=== PATIENT | female | born 1950 | race Caucasian/White ===

== ENCOUNTER 2023-06-28 06:39 | Day surgery (SDC) | payer MEDICARE, SELFPAY ==
[2023-06-28 11:22] VITALS: BMI 19.7
[2023-06-28 11:23] VITALS: BMI 19.7
[2023-06-28 11:33] VITALS: BP 133/89
[2023-06-28] MEDS: NORMOSOL-R 1000 IV (11:40)
[2023-06-28] MEDS: HEPARIN 5000 UNITS SC (11:52)
== END 2023-06-28 12:54 | disposition home or self-care (01) ==
LOC: SDS 06:39
PROVIDERS: ATTENDING PHYSICIAN Obstetrics & Gynecology
DX: D39.12 Neoplasm of uncertain behavior of left ovary (principal); Z53.8 Procedure and treatment not carried out for other reasons; R19.03 Right lower quadrant abdominal swelling, mass and lump; G47.33 Obstructive sleep apnea (adult) (pediatric); Z72.0 Tobacco use
CPT/HCPCS: 58571; 86850; 86900; 86901

== ENCOUNTER 2023-08-20 20:50 | Emergency (ER) | payer MEDICARE, SELFPAY ==
[2023-08-20 20:57] VITALS: BP 130/61
[2023-08-20 21:35] LABS: % Basophils 0.3 % (0-2); % Eosinophils 1.7 % (0-6); % Immature Granulocytes 0.5 % (0-0.5); % Monocytes 10.1 % (1.7-9.3); % Neutrophils 59.4 % (42.2-75.2); Absolute Eosinophils 0.1 10^3/uL (0-0.7); Absolute Lymphocytes 1.7 10^3/uL (1.2-3.4); Absolute Monocytes 0.6 10^3/uL (0.1-0.6); Absolute Neutrophils 3.6 10^3/uL (1.4-6.5); Hematocrit 34.7 % (37.0-47.0); Hemoglobin 11.4 g/dL (12.0-16.0); Mean Corp Hgb Conc. 32.9 g/dL (33.0-37.0); Mean Corpuscular Hgb 31.1 pg (27.0-31.0); Mean Corpuscular Volume 94.6 fL (81.0-99.0); Mean Platelet Volume 10.1 fL (7.4-10.4); Nucleated Red Blood Cells % 0 %; Platelet Count 224 10^3/uL (130-400); Red Blood Cell Count 3.67 10^6/uL (4.20-5.40); Red Cell Dist. Width 16.4 % (11.5-14.5)
[2023-08-20 21:55] LABS: ALT (SGPT) 22 U/L (0-35); AST (SGOT) 39 U/L (14-36); Alkaline Phosphatase 41 U/L (38-126); Blood Urea Nitrogen 20 mg/dl (7-17); Calcium 9.4 mg/dl (8.4-10.2); Carbon Dioxide 28 mmol/L (22-30); Chloride 101 mmol/L (98-107); Glucose 112 mg/dl (70-99); Potassium 4.4 mmol/L (3.5-5.1); Sodium 134 mmol/L (135-145); Total Bilirubin 2.9 mg/dl (0.2-1.3); Total Protein 6.5 g/dl (6.3-8.2); eGFR > 60.00
[2023-08-20 22:00] VITALS: BP 148/78
--- NOTE | 2023-08-20 22:04 | ED.GENMED ---
Addendum entered and electronically signed by Rosales Meehan MD 08/21/23 07:44:
I received a call from the radiologist this morning�CT over read concerning for possible small area of active extravasation in the pelvis. Patient apparently has a history of recent hysterectomy and postoperative bleeding requiring multiple
transfusions at [place]. Radiologist recommending repeat CT pelvis with and without IV contrast to better evaluate. I called the patient's son and spoke with him directly on the phone to explain the situation. He will bring patient back to the
emergency room immediately if for repeat imaging. Daytime ER attending aware.
Original Note:
History of Present Illness
General
Chief Complaint: Weakness
Source: patient
Exam Limitations: none
Time Seen by Provider: 08/20/23 21:37
Travel History
Have you had any contact with someone who has COVID-19?: No
Do you have any symptoms of coronavirus? Fever > 100 degrees, chills, cough, shortness of breath, sore throat, loss of taste or smell, muscle aches, or headache?: No
History of Present Illness
History of Present Illness:
This is a 73 year old female that comes in with c/o weakness. States that a week ago on she had a hysterectomy. States that that Tuesday after she had an internal bleed and they gave her 2 units of blood and the next day they gave her
another unit. States that they had to go in through her groin and cauterize the bleeder. States that she has been getting weaker and weaker. States that Tuesday she was good and Tuesday she was OK but has been getting weaker since then. States that
she has this right lower abd pain that comes and goes. States that she had diarrhea and some dizziness. Denies any fever, chills, chest pain, SOB, nausea, vomiting, headache, urinary burning.
Past History
Past History
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
Hyperthyroid) and Other (History of back pain, dizziness, neck pain, sleep apnea, arthritis, lung CA and anxiety.)
ED Past Surgical History: Gynecological (Tubal, Hysterectomy), Orthopedic (Right Rotator cuff) and Other ( status post right thoracotomy.)
Social History
Tobacco: Smoker
Alcohol: None
Personal:
Living: with family
Employment: Employed
Family History
Family History: Negative Diabetes, Hypertension, Early CAD, Asthma or Cancer
Review of Systems
Review of Systems
All Other Systems: ROS reviewed and negative except as documented in HPI and ROS
Constitutional: Reports no symptoms; Denies fever or chills
EENT: Reports no symptoms
Respiratory: Reports no symptoms; Denies cough or trouble breathing
Cardiac: Reports no symptoms; Denies chest pain
ABD/GI: Reports abdominal pain (Right lower abd) and diarrhea; Denies nausea or vomiting
: Reports no symptoms; Denies dysuria, frequency or urgency
Musculoskeletal: Reports no symptoms
Skin: Reports no symptoms
Neurological: Reports dizzy; Denies headache
Psychiatric: Reports no symptoms
Phy Exam
General Physical Exam
General Presentation: well appearing and no apparent distress
General age: appears stated age
General Skin: warm and dry
General Habitus: elderly
General Mental: alert
General Hydration: appears well hydrated
ENT Exam
ENT Exam: TM's normal, pharynx normal and neck supple
Eye Exam
Eye Exam: EOMI
Cardiovascular Exam
Cardiovascular Exam: regular rate/rhythm, no edema and normal peripheral pulses
Pulmonary Exam
Pulmonary Exam: lungs clear, no respiratory distress, no rales, chest non tender, no crackles, no rhonchi, no wheezing and no cough
Gastrointestinal Exam
Gastrointestinal Exam: normal bowel sounds, soft, no organomegaly, no pulsatile mass, non distended and tender (Right lower abd tenderness, Crepitus)
Musculoskeletal Exam
Musculoskeletal Exam: full ROM and no edema
Skin Exam
Skin Exam: normal color, warm/dry, no rash, no petechia and other (Contusion noted on both flanks and into the low back on the right. Lower abd bruising noted. Multiple areas with steri strips from surgery. Negative for any redness or drainage. )
Psychiatric Exam
Psychiatric Exam: normal mood/affect
Course
Orders/Labs/Results
Orders:
Orders
08/20/23 21:03
Electrocardiogram (*1) Urgent
Reason for Study: Fatigue / Weakness
EKG- Treatment ONCE
08/20/23 21:18
Complete Blood Count/With Diff Urgent
Comprehensive Metabolic Panel Urgent
08/20/23 22:03
0.9% Sodium Chloride 1000 ml [Nss] 1,000 ml IV BOLUS
Iohexol [Omnipaque] See Protocol PO NOW STA
08/20/23 23:35
Urinalysis Reflex To Culture Urgent
Date Specimen was Collected: 08/20/23
Time Specimen was Collected: 23:34
Urine Microscopic Reflex Cult Urgent
08/21/23 00:00
CT Abd/pel W Iv And Oral Contr Urgent
Comment: Recent Hysterectomy
Reason For Exam: Right lower abd pain
Abnormal Lab Results
08/20/23 08/20/23
21:18 23:35
RBC 3.67 L 10^6/uL
(4.20-5.40)
Hgb 11.4 L g/dL
(12.0-16.0)
Hct 34.7 L %
(37.0-47.0)
MCH 31.1 H pg
(27.0-31.0)
MCHC 32.9 L g/dL
(33.0-37.0)
RDW 16.4 H %
(11.5-14.5)
Monocytes % 10.1 H %
(1.7-9.3)
Sodium 134 L mmol/L
(135-145)
BUN 20 H mg/dl
(7-17)
Glucose 112 H mg/dl
(70-99)
Total Bilirubin 2.9 H mg/dl
(0.2-1.3)
AST 39 H U/L
(14-36)
Ur Occult Blood Reflex Trace A
(Negative)
Urine RBC 3-6 A /HPF
(0-2)
Urine Bacteria (Reflex) Few A
(Negative)
08/20/23 21:18
08/20/23 21:18
H/H slightly low. Dehydration. Glucose nonfasting. Total nakul elevation. AST slightly elevated. Urine negative for infection.
Vital Signs
Initial and Last Documented VS:
Initial Vital Signs
Temp Pulse Resp BP Pulse Ox
98.2 F 79 16 130/61 99
08/20/23 20:57 08/20/23 20:57 08/20/23 20:57 08/20/23 20:57 08/20/23 20:57
Last Documented Vital Signs
Temp Pulse Resp BP Pulse Ox
98.2 F 73 19 143/74 97
08/20/23 20:57 08/21/23 00:00 08/20/23 23:45 08/21/23 00:00 08/21/23 00:00
MDM/Problems Addressed
Differential Diagnosis Includes:
Bowel obstruction, UTI, Postoperative problem
MDM/Problems Addressed:
This is a 73 year old female that comes in with c/o feeling weak. States that she has a hysterectomy at [place] a week ago. Then on Tuesday a week ago she had internal bleeding and got 2 units of blood and the next day one unit. States
that they had gone up through her groin and Cauterized the bleed. States that for the past few days she is just feeling weak. States that she also had diarrhea.
Will check labs CT abd. Give IV fluids
Back into see patient. Explained that her blood work shows a little dehydration. Her CT shows that this could be an enteritis or ileus. Explained to patient that after surgery the bowel slows down and she will need to be up moving around. If this is
an Enteritis as noted by the diarrhea this will go away on its own. Encouraged patient to stay away form milk and milk products until the diarrhea stops. Increase her water intake to 8-8oz glasses daily. Chicken, rice and potatoes are easily
digested. Follow up with the PCP of the surgeon. Return with any concerns.
Chronic conditions affecting care: Cancer
Acute Exacerbation and/or Progression of Chronic Illness:
NA
*Radiology
Radiology exam reviewed: radiology read reviewed (CT abd/pelvis night hawk-Mildly prominent loops of small bowel with air-filled levels, may represent ileus and/or enteritis. No bowel obstruction. Postsurgical changes status post hysterectomy
without evidence of postoperative complication. Extensive subcutaneous emphysema along the anterior ), all reviewed NAD by ED Provider (CT cont- abd feliz, likely postsurgical. Incidentals: Normal gallbadder and appendix. Small free fluid in the
deep pelvix, some of which is intermediate density. No obstructive uropathy. Hepatic hypodensities, too small to characterize. No abd aortic aneurysm. No acute osseous abnormality. ) and other (CT cont- NO acute abnormality within the visualized
lungs. )
*Pulse Oximetry
Patient hypoxic: no
*EKG
Interpreted by ED Provider?: Yes
Heart Rate: 78
Rate: normal
Rhythm: sinus
[place]: normal axis
Interval: normal interval
QRS Pattern: normal QRS
Ischemia: no ischemia
*Por[employer]ain [employer] Interpretation
Rate: normal
Heart Rate: 73
Rhythm: sinus
*Critical Care Note
Total Time (30-74mins, 75-104mins- exclusive of procedures): Not Applicable
ED Attending Note
-
Portions of this chart may have been created with voice recognition software.� Occasional wrong word or��sound alike� substitutions may have occurred due to the inherent limitations of voice recognition software.
Discharge Plan
Departure
Patient Disposition: Home (Routine Discharge)
Date of Disposition: 08/21/23
Time of Disposition: 01:33
Patient with high blood pressure during this ER visit?: Yes
Condition: Good
Covid-19: Not Applicable
Discharge Problem:
Enteritis
Instructions: BLOOD PRESSURE
Prescriptions:
No Action
albuterol sulfate [ProAir HFA] 90 mcg/actuation Hfa Aerosol Inhaler
2 puff INHALATION PRN PRN (Reason: COPD)
escitalopram oxalate [Lexapro] 20 mg Tablet
20 mg PO QPM
atorvastatin 20 mg Tablet
20 mg PO QPM
methimazole 5 mg Tablet
2.5 mg PO MOTUWETHFR
cholecalciferol (vitamin D3) [Vitamin D3] 25 mcg (1,000 unit) Tablet
25 mcg PO DAILY
coQ10 (ubiquinol) 200 mg Capsule
200 mg PO Q48H
Myrbetriq 25 mg Tablet Extended Release 24 Hr
25 mg PO DAILY
Eliquis 5 mg Tablet
5 mg PO BID
metoprolol tartrate 37.5 mg Tablet
37.5 mg PO DAILY
lorazepam [Ativan] 0.5 mg Tablet
0.25 mg PO DAILY PRN (Reason: anxiety)
Referrals:
UNKNOWN - PT NOT,INTERVIEWE [Family Provider] -
Activity Restrictions/Additional Instructions:
As discussed, your blood work shows that you are slightly dehydrated. Please increase your water intake to 8-8oz glasses daily. Your urine is negative for infection. Your CT shows that this maybe an Enteritis or early ileus. This is most likely an
enteritis due to the diarrhea. Please stay away from milk and milk products until the diarrhea stops. Simple food to eat is Chicken, Rice and potatoes which are easily digested. Follow up with your surgeon and your family doctor. IF YOU HAVE
INCREASED OR CHANGING ABD PAIN, FEVER, OR YOU HAVE ANY OTHER CONCERNS PLEASE RETURN TO THE EMERGENCY ROOM.
Interventions
Interventions:
*Risk Screen - Suicide Last Done: 08/20/23 21:30
*General Assessment Last Done: 08/20/23 20:57
*Neglect/Abuse Screening Last Done: 08/20/23 21:30
*ED COVID-19 Vaccine History Last Done: 08/20/23 20:57
ED- Cardiac Assessment Last Done: 08/20/23 22:16
ED- Neurological Assessment Last Done: 08/20/23 22:16
ED- Pulmonary Assessment Last Done: 08/20/23 22:16
Discharge Date and Time
Print Language: AZERI
[2023-08-20] MEDS: OMNIPAQUE 50 ML PO (22:10)
[2023-08-20] MEDS: NSS 1000 IV (22:18)
[2023-08-20 23:00] VITALS: BP 146/69
[2023-08-20 23:49] LABS: Urine Albumin Negative (Neg - Trace); Urine Bilirubin Negative (Negative); Urine Character Clear (Clear); Urine Color Yellow; Urine Glucose Negative (Negative); Urine Ketone Negative (Negative); Urine Leukocyte Negative (Negative); Urine Nitrite Negative (Negative); Urine Occult Blood Trace (Negative); Urine Urobilinogen Negative (Neg - 1+)
[2023-08-21] VITALS: BP 143/74
[2023-08-21 00:28] LABS: Urine Bacteria Few (Negative)
[2023-08-21 01:42] VITALS: BP 149/67
== END 2023-08-21 02:01 | disposition home or self-care (01) ==
LOC: EMR 20:50
PROVIDERS: Clinical Nurse Specialist Family Health; Emergency Medicine; EMERGENCY PHYSICIAN Emergency Medicine
DX: K52.9 Noninfective gastroenteritis and colitis, unspecified (principal); E86.0 Dehydration; I48.91 Unspecified atrial fibrillation; J43.9 Emphysema, unspecified; I10 Essential (primary) hypertension; E78.00 Pure hypercholesterolemia, unspecified; F41.9 Anxiety disorder, unspecified; G47.30 Sleep apnea, unspecified; E05.90 Thyrotoxicosis, unspecified without thyrotoxic crisis or storm; F17.200 Nicotine dependence, unspecified, uncomplicated; Z79.01 Long term (current) use of anticoagulants; Z82.49 Family history of ischemic heart disease and other diseases of the circulatory system; Z85.51 Personal history of malignant neoplasm of bladder; Z90.710 Acquired absence of both cervix and uterus; Z98.890 Other specified postprocedural states
CPT/HCPCS: 99284; 96360; 74177; 80053; 81003; 81015; 85025; 93005; Q9967

== ENCOUNTER 2023-08-21 11:40 | Emergency (ER) | payer MEDICARE, SELFPAY ==
[2023-08-21 11:48] VITALS: BP 116/90
[2023-08-21 13:15] VITALS: BP 145/70
--- NOTE | 2023-08-21 13:29 | ED.GENMED ---
History of Present Illness
General
Chief Complaint: Abnormal Lab Value
Source: patient
Exam Limitations: none
Time Seen by Provider: 08/21/23 12:53
Travel History
Have you had any contact with someone who has COVID-19?: No
Do you have any symptoms of coronavirus? Fever > 100 degrees, chills, cough, shortness of breath, sore throat, loss of taste or smell, muscle aches, or headache?: No
History of Present Illness
History of Present Illness:
73-year-old female presents for reevaluation. She was here overnight for weakness. She was thought to have enteritis. She had a hysterectomy approximately 11 days ago through [facility]. She was anemic afterwards and required a blood
transfusion. She also had a uterine artery bleed postoperatively that was embolized by interventional radiology prior to discharge. Upon discharge which was, 6 days ago, she felt well however since discharge she has noticed progressive weakness.
She was here last evening had a CT scan of her abdomen with IV contrast which was initially thought to be enteritis however reread by radiologist suggested a possibility of extravasation. They recommend she return here for CT scan with and without
IV contrast. No new complaints on the patient's behalf.
Past History
Past History
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
Hyperthyroid) and Other (History of back pain, dizziness, neck pain, sleep apnea, arthritis, lung CA and anxiety.)
ED Past Surgical History: Gynecological (Tubal, Hysterectomy), Orthopedic (Right Rotator cuff) and Other ( status post right thoracotomy.)
Social History
Tobacco: Smoker
Alcohol: None
Personal:
Living: with family
Employment: Employed
Family History
Family History: Negative Diabetes, Hypertension, Early CAD, Asthma or Cancer
Phy Exam
Physical Exam
Physical Exam:
General: Well-appearing female no acute respiratory distress
HEENT: Normocephalic atraumatic
Heart: Regular rate and rhythm no murmurs
Lungs: Clear to auscultation bilaterally no wheezing
Abdomen soft incisional tenderness is noted but nondistended ecchymosis is noted about the abdominal wall. This is not new.
Extremities: No cyanosis
Course
Orders/Labs/Results
Orders:
Orders
08/21/23 13:12
CT Pelvis W/wo Iv Contrast Urgent
Comment: Please do delayed imaging
Reason For Exam: abdominal pain, recent abnormal cT,
08/21/23 13:32
Complete Blood Count/With Diff Urgent
Comprehensive Metabolic Panel Urgent
Abnormal Lab Results
08/21/23
13:32
RBC 3.38 L 10^6/uL
(4.20-5.40)
Hgb 10.6 L g/dL
(12.0-16.0)
Hct 30.9 L %
(37.0-47.0)
MCH 31.4 H pg
(27.0-31.0)
RDW 16.7 H %
(11.5-14.5)
Monocytes % 10.5 H %
(1.7-9.3)
Sodium 132 L mmol/L
(135-145)
Total Bilirubin 2.7 H mg/dl
(0.2-1.3)
AST 43 H U/L
(14-36)
Total Protein 6.2 L g/dl
(6.3-8.2)
08/21/23 13:32
08/21/23 13:32
Vital Signs
Initial and Last Documented VS:
Initial Vital Signs
Temp Pulse Resp BP Pulse Ox
97.5 F 79 18 116/90 99
08/21/23 11:48 08/21/23 11:48 08/21/23 11:48 08/21/23 11:48 08/21/23 11:48
Last Documented Vital Signs
Temp Pulse Resp BP Pulse Ox
97.5 F 77 24 145/70 97
08/21/23 11:48 08/21/23 13:15 08/21/23 13:15 08/21/23 13:15 08/21/23 13:15
MDM/Problems Addressed
Differential Diagnosis Includes:
Ongoing weakness. Patient with questionable extravasation on CT scan last evening. Here for repeat CT with and without with delayed imaging. This was ordered. Repeat labs pending
*Critical Care Note
Total Time (30-74mins, 75-104mins- exclusive of procedures): Not Applicable
Update Note
Update Note:
CT today reassuring. What was thought to be extravasation on yesterday CT scan demonstrates what appears to be a suture today. Hematoma is stable in size. Vital signs are stable. Slight drop in hemoglobin from yesterday. She did receive some
fluids yesterday. This could be dilutional. She denies any dark stools. She feels comfortable going home which I think is reasonable. She will follow-up with her surgeon as planned this week
ED Attending Note
-
Portions of this chart may have been created with voice recognition software.� Occasional wrong word or��sound alike� substitutions may have occurred due to the inherent limitations of voice recognition software.
Discharge Plan
Departure
Patient Disposition: Home (Routine Discharge)
Date of Disposition: 08/21/23
Time of Disposition: 16:06
Patient with high blood pressure during this ER visit?: No
Discharge Problem:
Fatigue
Prescriptions:
No Action
albuterol sulfate [ProAir HFA] 90 mcg/actuation Hfa Aerosol Inhaler
2 puff INHALATION PRN PRN (Reason: COPD)
escitalopram oxalate [Lexapro] 20 mg Tablet
20 mg PO QPM
atorvastatin 20 mg Tablet
20 mg PO QPM
methimazole 5 mg Tablet
2.5 mg PO MOTUWETHFR
cholecalciferol (vitamin D3) [Vitamin D3] 25 mcg (1,000 unit) Tablet
25 mcg PO DAILY
coQ10 (ubiquinol) 200 mg Capsule
200 mg PO Q48H
Myrbetriq 25 mg Tablet Extended Release 24 Hr
25 mg PO DAILY
Eliquis 5 mg Tablet
5 mg PO BID
metoprolol tartrate 37.5 mg Tablet
37.5 mg PO DAILY
lorazepam [Ativan] 0.5 mg Tablet
0.25 mg PO DAILY PRN (Reason: anxiety)
Referrals:
Kathy George CRNP [Family Provider] -
Activity Restrictions/Additional Instructions:
Stay hydrated. Please return here for worsening symptoms otherwise follow-up with surgeon as planned
Interventions
Interventions:
*Risk Screen - Suicide Last Done: 08/21/23 11:48
*General Assessment Last Done: 08/21/23 11:48
*Neglect/Abuse Screening Last Done: 08/21/23 11:48
*ED COVID-19 Vaccine History Last Done: 08/21/23 13:18
Discharge Date and Time
Print Language: SLOVENIAN
[2023-08-21 13:57] LABS: % Basophils 0.4 % (0-2); % Eosinophils 2.5 % (0-6); % Immature Granulocytes 0.5 % (0-0.5); % Monocytes 10.5 % (1.7-9.3); % Neutrophils 63.1 % (42.2-75.2); Absolute Eosinophils 0.1 10^3/uL (0-0.7); Absolute Lymphocytes 1.3 10^3/uL (1.2-3.4); Absolute Monocytes 0.6 10^3/uL (0.1-0.6); Absolute Neutrophils 3.6 10^3/uL (1.4-6.5); Hematocrit 30.9 % (37.0-47.0); Hemoglobin 10.6 g/dL (12.0-16.0); Mean Corp Hgb Conc. 34.3 g/dL (33.0-37.0); Mean Corpuscular Hgb 31.4 pg (27.0-31.0); Mean Corpuscular Volume 91.4 fL (81.0-99.0); Mean Platelet Volume 9.7 fL (7.4-10.4); Nucleated Red Blood Cells % 0 %; Platelet Count 235 10^3/uL (130-400); Red Blood Cell Count 3.38 10^6/uL (4.20-5.40); Red Cell Dist. Width 16.7 % (11.5-14.5); White Blood Cell Count 5.7 10^3/uL (4.8-10.8)
[2023-08-21 14:00] VITALS: BP 134/70
[2023-08-21 14:25] LABS: ALT (SGPT) 21 U/L (0-35); AST (SGOT) 43 U/L (14-36); Albumin 3.7 g/dl (3.5-5.0); Alkaline Phosphatase 46 U/L (38-126); Blood Urea Nitrogen 12 mg/dl (7-17); Carbon Dioxide 26 mmol/L (22-30); Chloride 105 mmol/L (98-107); Glucose 90 mg/dl (70-99); Potassium 4.1 mmol/L (3.5-5.1); Sodium 132 mmol/L (135-145); Total Bilirubin 2.7 mg/dl (0.2-1.3); Total Protein 6.2 g/dl (6.3-8.2); eGFR > 60.00
[2023-08-21 15:13] VITALS: BP 132/108
[2023-08-21 16:00] VITALS: BP 141/69
== END 2023-08-21 16:14 | disposition home or self-care (01) ==
LOC: EMR 11:40
PROVIDERS: Physician Assistant; EMERGENCY PHYSICIAN Emergency Medicine; FAMILY PHYSICIAN Registered Nurse Ambulatory Care
DX: R53.83 Other fatigue (principal); R53.1 Weakness; I48.91 Unspecified atrial fibrillation; I10 Essential (primary) hypertension; E78.00 Pure hypercholesterolemia, unspecified; F41.9 Anxiety disorder, unspecified; G47.30 Sleep apnea, unspecified; M19.90 Unspecified osteoarthritis, unspecified site; J44.9 Chronic obstructive pulmonary disease, unspecified; F17.200 Nicotine dependence, unspecified, uncomplicated; Z98.890 Other specified postprocedural states; Z85.118 Personal history of other malignant neoplasm of bronchus and lung; Z85.51 Personal history of malignant neoplasm of bladder; Z79.01 Long term (current) use of anticoagulants; Z91.030 Bee allergy status; Z88.2 Allergy status to sulfonamides; Z91.048 Other nonmedicinal substance allergy status
CPT/HCPCS: 99285; 72194; 80053; 85025; Q9967

== ENCOUNTER → 2023-08-29 17:12 | Outpatient (REF) | payer MEDICARE, SELFPAY | LOC: RAD 17:12 | PROVIDERS: ATTENDING PHYSICIAN Internal Medicine; FAMILY PHYSICIAN Family Medicine | DX: F17.200 Nicotine dependence, unspecified, uncomplicated (principal); M79.604 Pain in right leg; Z90.710 Acquired absence of both cervix and uterus | CPT/HCPCS: 93971 ==

== ENCOUNTER → 2024-10-02 12:59 | Outpatient (REF) | payer MEDICARE, SELFPAY ==
[2024-10-02 14:00] LABS: Hemoglobin 15.5 g/dL (12.0-16.0); Mean Corp Hgb Conc. 33.7 g/dL (33.0-37.0); Mean Corpuscular Hgb 31.3 pg (27.0-31.0); Mean Corpuscular Volume 92.9 fL (81.0-99.0); Mean Platelet Volume 11.2 fL (7.4-10.4); Platelet Count 149 10^3/uL (130-400); Red Blood Cell Count 4.95 10^6/uL (4.20-5.40); Red Cell Dist. Width 13.5 % (11.5-14.5); White Blood Cell Count 4.6 10^3/uL (4.8-10.8)
[2024-10-02 14:12] LABS: Urine Albumin Negative (Neg - Trace); Urine Bilirubin Negative (Negative); Urine Character Clear (Clear); Urine Color Yellow; Urine Glucose Negative (Negative); Urine Ketone Negative (Negative); Urine Leukocyte Negative (Negative); Urine Nitrite Negative (Negative); Urine Occult Blood 1+ (Negative); Urine Specific Gravity 1.005 (<1.030); Urine Urobilinogen Negative (Neg - 1+)
[2024-10-02 14:27] LABS: Blood Urea Nitrogen 12 mg/dl (7-17); Calcium 9.6 mg/dl (8.4-10.2); Carbon Dioxide 29 mmol/L (22-30); Chloride 108 mmol/L (98-107); Glucose 94 mg/dl (70-99); Potassium 4.2 mmol/L (3.5-5.1); Sodium 140 mmol/L (135-145); eGFR > 60.00
[2024-10-02 14:30] LABS: Urine Red Blood Cell 0-2 /HPF (0-2); Urine Squamous Cell 21-25 /LPF (Few); Urine White Cell 0-2 /HPF (0-5)
== END ==
LOC: RCS 12:59
PROVIDERS: ATTENDING PHYSICIAN Nurse Practitioner; FAMILY PHYSICIAN Family Medicine; OTHER PHYSICIAN Urology
DX: N39.41 Urge incontinence (principal); R35.0 Frequency of micturition; Z01.818 Encounter for other preprocedural examination
CPT/HCPCS: 36415; 80048; 81003; 81015; 85027; 87086; 93005

== ENCOUNTER → 2025-02-14 10:46 | Outpatient (REF) | payer MEDICARE, SELFPAY | LOC: HWRAD 10:46 | PROVIDERS: ATTENDING PHYSICIAN Internal Medicine Critical Care Medicine; FAMILY PHYSICIAN Family Medicine | DX: F17.210 Nicotine dependence, cigarettes, uncomplicated (principal) | CPT/HCPCS: 71271 ==

== ENCOUNTER → 2025-02-25 14:59 | Outpatient (REF) | payer MEDICARE, SELFPAY | LOC: RCS 14:59 | PROVIDERS: ATTENDING PHYSICIAN Internal Medicine Cardiovascular Disease; FAMILY PHYSICIAN Family Medicine | DX: I48.0 Paroxysmal atrial fibrillation (principal) | CPT/HCPCS: 93306 ==

== ENCOUNTER → 2025-04-09 14:32 | Outpatient (REF) | payer MEDICARE, SELFPAY | LOC: WDC 14:32 | PROVIDERS: ATTENDING PHYSICIAN Family Medicine | DX: M85.80 Other specified disorders of bone density and structure, unspecified site (principal); Z13.820 Encounter for screening for osteoporosis; Z78.0 Asymptomatic menopausal state; Z12.31 Encounter for screening mammogram for malignant neoplasm of breast | CPT/HCPCS: 77063; 77067; 77080 ==